=== PATIENT | female | born 1960 | race Caucasian/White ===

== ENCOUNTER 2024-04-19 15:27 | Emergency (ER) | payer BC, MEDICARE, MEDICAID, SELFPAY ==
[2024-04-19 15:47] VITALS: BP 99/70; PULSE 79; RESP 16; TEMP 37.2; O2SAT 96; BMI 27.4
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
[2024-04-19] MEDS: ONDANSETRON 4 MG ODT SL (18:25)
[2024-04-19] MEDS: KETOROLAC 30 MG/ML VIAL IM (18:26)
[2024-04-19 18:34] VITALS: BP 120/57; PULSE 62; RESP 18; O2SAT 97
== END 2024-04-19 18:36 | disposition home or self-care (01) ==
PROVIDERS: Emergency Provider Emergency Medicine; PCP Family Medicine
DX: M54.2 Cervicalgia (principal); R51.9 Headache, unspecified
CPT/HCPCS: 96372; 99283; J1885

== ENCOUNTER 2024-10-03 16:20 | Emergency (ER) | payer OTHER, SELFPAY ==
[2024-10-03 16:30] VITALS: BP 118/68; PULSE 79; RESP 17; TEMP 36.2; O2SAT 96; BMI 30.3
--- NOTE | 2024-10-03 18:08 | PC.NURSE ---
Patient out at nurses station stating she wants to leave before evaluation by ER-MD. Patient is ambulatory and states she will follow up with her primary doctor at [facility]. Patient states understanding for wait times and apologizes that she is leaving. This RN reiterated that patient will be seen and examined if she stays and that if she leaves she is welcome to come back at anytime if having same/new/worsening symptoms. Patient states understanding. Patient walked out to ER-lobby by this RN, she states her vehicle is drivable and that she will be driving herself home. Patient also completed [employer] form and turned it into registration and it was scanned into the system prior to her leaving [facility]. [facility] at approximately 1806.
== END 2024-10-03 18:18 | disposition left against medical advice (07) ==
PROVIDERS: Emergency Provider Emergency Medicine
CPT/HCPCS: 99281